=== PATIENT | male | born 1945 | race Caucasian/White ===

== ENCOUNTER 2016-04-12 18:01 | Emergency (ER) | payer OTHER ==
[2016-04-12] MEDS ORDERED: TRAMADOL 50 MG TAB ONE (21:04)
== END 2016-04-12 21:10 | disposition home or self-care (01) ==
LOC: ER 18:01
DX: S09.8XXA Other specified injuries of head, initial encounter (principal); S40.011A Contusion of right shoulder, initial encounter; W01.0XXA Fall on same level from slipping, tripping and stumbling without subsequent striking against object, initial encounter; Y92.009 Unspecified place in unspecified non-institutional (private) residence as the place of occurrence of the external cause; E11.9 Type 2 diabetes mellitus without complications
CPT/HCPCS: 36415; 70450; 72125; 80053; 82550; 82553; 82947; 84484; 85025; 93005